=== PATIENT | male | born 1945 | race Two or more races ===

== ENCOUNTER 2016-12-09 20:13 | Inpatient (IN) | payer MEDICARE, OTHER ==
[~2016-12-09] VITALS: Ht 170.2 cm; Wt 94.8 kg
[2016-12-09] MEDS ORDERED: IV NS 0.9% 1,000 ML ONE (20:29)
[2016-12-09] MEDS ORDERED: IV SET PRIMARY 1 EA INFUS.SET MC ONE (20:29)
[2016-12-09] MEDS ORDERED: ONDANSETRON HCL/PF 4 MG/2 ML VIAL ONE (20:29)
[2016-12-09] MEDS ORDERED: ONDANSETRON HCL/PF 4 MG/2 ML VIAL IVP ONE (20:30)
[2016-12-09] MEDS ORDERED: IV NS 0.9% 1,000 ML BAG IV ONE (20:30)
[2016-12-09 20:34] LABS: BASOPHILS # (AUTO) 0.1 /CMM (0.0-0.2); BASOPHILS % (AUTO) 1.1 % (0.0-2.0); EOSINOPHILS # (AUTO) 0.4 /CMM (0.0-0.7); EOSINOPHILS % (AUTO) 5.7 % (0.0-6.0); HEMATOCRIT 43 % (39-51); LYMPHOCYTES % (AUTO) 26.8 % (20.0-44.0); MEAN CORPUSCULAR HEMOGLOBIN 30 PG (26.0-33.0); MEAN CORPUSCULAR HGB CONC 33 g/dl (31.0-36.0); MEAN CORPUSCULAR VOLUME 92 fL (80-96); MONOCYTES # (AUTO) 0.7 /CMM (0.1-1.30); NEUTROPHILS # (AUTO) 4.1 /CMM (1.8-8.9); NEUTROPHILS % (AUTO) 57.4 % (43.0-81.0); PLATELET COUNT (AUTO) 227 /CMM (150-450); RDW COEFFICIENT OF VARIATION 13.2 (11.5-15.0); RED BLOOD CELL COUNT(AUTO) 4.64 MIL/uL (4.5-6.0); WHITE BLOOD COUNT (AUTO) 7.4 K/uL (4.3-11.0)
--- NOTE | 2016-12-09 20:38 | NUR ---
PT A/OX4 BREATHING EFFORTLESSLY ON ROOM AIR, PT ACCIDENTIALLY ATE A WHOLE PACKAGE OF WEED GUMMY BEARS, PT STATES HE DID NOT KNOW THEY WERE WEED GUMMY BEARS, PT IS VOMITING AND HAVING NAUSEA, IV PLACED LABS DRAWN, PT ON MONITOR, IN GOWN, FAMILY AT BEDSIDE, MD MADE AWARE WILL CONTINUE TO MONITOR.
[2016-12-09 20:45] LABS: CALCIUM, SERUM 8.4 mg/dL (8.5-10.1); CARBON DIOXIDE 27 mmol/L (21-32); CHLORIDE 106 mmol/L (98-107); GLUCOSE 127 mg/dL (74-106); POTASSIUM 3.6 mmol/L (3.5-5.1); SODIUM SERUM 143 mmol/L (136-145); UREA NITROGEN, BLOOD 13 mg/dL (7-18)
[2016-12-09 20:51] LABS: ACETAMINOPHEN < 2 ug/ml (10-30); ALANINE AMINOTRANSFERASE 27 U/L (12-78); ALBUMIN 4.1 g/dL (3.4-5.0); ALCOHOL, BLOOD < 3 mg/dL (0-0); ALKALINE PHOSPHATASE 85 U/L (46-116); ASPARTATE AMINOTRANSFERASE 34 U/L (15-37); BILIRUBIN,DIRECT 0.2 mg/dL (0.0-0.2); BILIRUBIN,TOTAL 0.8 mg/dL (0.2-1.0); SALICYLATE 2.2 mg/dL (2.8-20.0); TOTAL PROTEIN, SERUM 7.1 g/dL (6.4-8.2)
--- NOTE | 2016-12-09 21:03 | NUR ---
RYDER VELASCO DAUGHTER OF PT [phone]
[2016-12-09] MEDS ORDERED: IV NS 0.9% 1,000 ML IV PRN (22:06)
[2016-12-09] MEDS ORDERED: ONDANSETRON HCL/PF 4 MG/2 ML VIAL IVP PRN (22:30)
[2016-12-09] MEDS ORDERED: MAGNESIUM HYDROXIDE 30 ML UDC PO PRN (22:30)
[2016-12-09] MEDS ORDERED: HYDROCODONE/APAP 5/325MG 1 EACH TABLET PO PRN (22:30)
[2016-12-09] MEDS ORDERED: ACETAMINOPHEN 325 MG TABLET PO PRN (22:30)
[2016-12-09] MEDS ORDERED: MAG HYDROX/AL HYDROX/SIMETH 30 ML UDC PO PRN (22:30)
[2016-12-09] MEDS ORDERED: Z GUARD REMEDY 2 OZ OINT TP PRN (22:30)
[2016-12-09] MEDS ORDERED: ZOLPIDEM TARTRATE 5 MG TABLET PO PRN (22:30)
--- NOTE | 2016-12-09 22:30 | NUR ---
MS RN NOTE RECEIVED PATIENT FROM ER, PATIENT IS ALERT AND ORIENTEDX3, NO S/S OF RESPIRATORY DISTRESS OR PAIN NOTED AT THIS TIME. IV ON LEFT AC 18G IS PATENT AND INTACT, WILL CONNECT TO FLUID LATER. SKIN IS MOSTLY INTACT, ABRASION NOTED ON LEFT LOWER LEG, PICTURE WAS TAKEN AND PUT IT IN A CHART. TELE MONITOR SR 90. SRX2, BED IN LOW POSITION, CALL LIGHT WITHIN REACH, WILL CONTINUE TO MONITOR PATIENT. Addendum: 12/09/16 at 2311 by MERARI GILLIAM RN TUBE DRAW HELPER NOTE
[2016-12-09] MEDS ORDERED: IV SET PRIMARY PUMP SET 1 EA INFUS.SET MC ONE (22:37)
[2016-12-10] VITALS: BP 123/67
[2016-12-10 04:00] VITALS: BP 119/68
--- NOTE | 2016-12-10 06:45 | NUR ---
MANAGER RESORT NOTE PATIENT IS RESTING IN BED COMFORTABLY, NO S/S OF RESPIRATORY DISTRESS OR HEADACHE, DIZZINESS NOTED AT THIS TIME. IV ON LEFT FA IS PATENT AND INTACT, FLUID IS RUNNING. TELE MONITOR SR 74. WILL ENDORSE TO DAY SHIFT NURSE FOR RAJANI.
[2016-12-10 07:01] VITALS: BP 124/72
[2016-12-10 07:12] LABS: BASOPHILS % (AUTO) 0.3 % (0.0-2.0); EOSINOPHILS # (AUTO) 0.1 /CMM (0.0-0.7); EOSINOPHILS % (AUTO) 1.4 % (0.0-6.0); HEMATOCRIT 36 % (39-51); HEMOGLOBIN 12.1 g/dL (13.5-17.5); LYMPHOCYTES # (AUTO) 0.8 /CMM (0.8-4.8); LYMPHOCYTES % (AUTO) 13.4 % (20.0-44.0); MEAN CORPUSCULAR HEMOGLOBIN 32 PG (26.0-33.0); MEAN CORPUSCULAR HGB CONC 34 g/dl (31.0-36.0); MEAN CORPUSCULAR VOLUME 93 fL (80-96); MONOCYTES # (AUTO) 0.5 /CMM (0.1-1.30); MONOCYTES % (AUTO) 8.6 % (2.0-12.0); NEUTROPHILS # (AUTO) 4.8 /CMM (1.8-8.9); NEUTROPHILS % (AUTO) 76.3 % (43.0-81.0); PLATELET COUNT (AUTO) 175 /CMM (150-450); RED BLOOD CELL COUNT(AUTO) 3.82 MIL/uL (4.5-6.0); WHITE BLOOD COUNT (AUTO) 6.3 K/uL (4.3-11.0)
[2016-12-10 07:21] LABS: CREATININE 0.8 mg/dL (0.6-1.3); MAGNESIUM 2.3 mg/dL (1.8-2.4); PHOSPHORUS 3.7 mg/dL (2.5-4.9); POTASSIUM 4.2 mmol/L (3.5-5.1)
[2016-12-10] MEDS ORDERED: PANTOPRAZOLE 40 MG TABLET.DR PO SCH (07:30)
[2016-12-10] MEDS ORDERED: FLUO40CA8 PO (08:36)
[2016-12-10] MEDS ORDERED: ASPI325T2 PO (08:36)
[2016-12-10] MEDS ORDERED: ATOR10TA PO (08:36)
[2016-12-10 11:31] LABS: APPEARANCE,URINE CLEAR (CLEAR); BILIRUBIN,URINE NEGATIVE (NEGATIVE); BLOOD, URINE NEGATIVE Ery/uL (NEGATIVE); COLOR,URINE YELLOW (YELLOW); KETONES,URINE NEGATIVE (NEGATIVE); LEUKOCYTE ESTERASE ,URINE NEGATIVE (NEGATIVE); NITRITE, URINE NEGATIVE (NEGATIVE); PROTEIN,URINE NEGATIVE (NEGATIVE); UGLUCOSE NEGATIVE (NEGATIVE)
[2016-12-10 11:47] LABS: BACTERIA,URINE Rare /HPF (None Seen); RBC,URINE 0-2 /HPF (0-2); SQUAMOUS EPITHELIAL CELL,UR None Seen /HPF (None Seen); WBC,URINE 0-2 /HPF (0-3)
[2016-12-10 12:00] VITALS: BP 97/58
--- NOTE | 2016-12-10 14:32 | NUR ---
PATIENT D/C D HOME WITH ALL BELONGINGS IN NO ACUTE DISTRESS WITH ALL BELONGINGS IN NO ACUTE DISTRESS , PT HAS BEEN VOIDING AND HYDRATING QS WITHOUT NAUSEA OR VOMINTING. PT ALERT AND ORIENTED T6IMES THREE A LITTLE LETHARGY ENCOURAGED TO HYDRATE AND REST . PT LEFT VIA W/C WITH DAUGHTER RYDER AT CHAIR SIDE
== END 2016-12-10 14:25 | disposition home or self-care (01) | DRG 917 ==
LOC: ER 20:15 → MED 22:14 → TELE 23:04
PROVIDERS: ADMIT Internal Medicine; ATTEND Internal Medicine
DX: T40.7X1A Poisoning by cannabis (derivatives), accidental (unintentional), initial encounter (principal); G92 Toxic encephalopathy; Y92.009 Unspecified place in unspecified non-institutional (private) residence as the place of occurrence of the external cause; E86.0 Dehydration; N40.0 Benign prostatic hyperplasia without lower urinary tract symptoms; Z96.649 Presence of unspecified artificial hip joint; K21.9 Gastro-esophageal reflux disease without esophagitis; I70.90 Unspecified atherosclerosis
CPT/HCPCS: 36415; 80048-TC; 80061-TC; 80076-TC; 80305; 81000-TC; 83735-TC; 84100-TC; 85025-TC; 87081-TC; A4606; G0480; J2405; J7030; Z7610